=== PATIENT | male | born 1940 | race American Indian/Alaskan Native ===

== ENCOUNTER 2017-12-07 14:44 | Emergency (ER) | payer OTHER, MEDICARE ==
[~2017-12-07] VITALS: Ht 172.7 cm; Wt 82.5 kg
--- OUTSIDE RECORDS SUMMARY | ~2017-12-07 | XMS | Clinical Summary ---
Demographics + + + | Address | [address] | | | [place] [address] | + + + | Home Phone | | + + + | Preferred Language | Unknown | + + + | Marital Status | | + + + | Yazidi Affiliation | 1041 | + + + | Race | Unknown | + + + | Ethnic Group | Unknown | + + + Author + + + | Author | [facility] | | | and [place] | + + + | Organization | [facility] | | | and [place] | + + + | Address | Unknown | + + + | Phone | Unavailable | + + + Support + + + + + | Name | Relationship | Address | Phone | + + + + + | Alycia Diego | ECON | [address] | | | | | [place] [address] | | + + + + + | Devika Diego | ECON | [address] | | | | | [address], [place] | | | | | [address] | | + + + + + Care Team Providers + +------+ + | Care Button And Buckle Maker Name | Role | Phone | + +------+ + | Pcp, Prov Inactive | PP | Unavailable | + +------+ + Allergies + + + +--------+ + | Active Allergy | Reactions | Severity | Noted | Comments | | | | | Date | | + + + +--------+ + | Penicillins | | | | hives | + + + +--------+ + Current Medications + + +---------+---------+------+------+-------+ | Prescription | Sig. | Disp. | Refills | Star | End | Statu | | | | | | t | Date | s | | | | | | Date | | | + + +---------+---------+------+------+-------+ | | Take 1 tablet by | | | | | Activ | | HYDROcodone-acetamin | mouth every 6 hours | | | | | e | | ophen (NORCO) 5-325 | as needed. | | | | | | | mg per tablet | | | | | | | + + +---------+---------+------+------+-------+ | metoprolol | Take 50 mg by mouth | | | | | Activ | | tartrate (LOPRESSOR) | 2 times daily. | | | | | e | | 50 mg tablet | | | | | | | + + +---------+---------+------+------+-------+ | gabapentin | 1 tab PO nightly x 1 | 180 | 3 | 08/0 | | Activ | | (NEURONTIN) 100 mg | week, then increase | capsule | | 7/20 | | e | | capsule | to 2 tabs PO | | | 14 | | | | | nightly x 1 week, | | | | | | | | then increase to 3 | | | | | | | | tabs PO nightly. If | | | | | | | | tolerated; okay to | | | | | | | | start taking 1 tab | | | | | | | | in AM, 3 tabs in PM | | | | | | | | x 1 week, then | | | | | | | | increase to 2 tabs | | | | | | | | in AM, 3 tabs in PM | | | | | | | | x 1 week, then | | | | | | | | increase to 3 tabs | | | | | | | | in AM, 3 tabs in PM | | | | | | | | thereafter. | | | | | | + + +---------+---------+------+------+-------+ | latanoprost | Place 1 drop into | | | | | Activ | | (XALATAN) 0.005% | both eyes nightly. | | | | | e | | ophthalmic solution | | | | | | | + + +---------+---------+------+------+-------+ Active Problems + + + | Problem | Noted Date | + + + | Hemorrhage of rectum and anus | 02/05/2015 | + + + | Iron deficiency anemia, unspecified | 02/05/2015 | + + + + + | Overview: ICD-10 Record update | + + + + + | Lumbar radiculopathy | 05/08/2014 | + + + | Spinal stenosis of lumbar region - worse at L3/L4 | 04/09/2014 | + + + | DDD (degenerative disc disease), lumbar | 04/09/2014 | + + + | Low back pain | 03/19/2014 | + + + | Right leg pain | 03/19/2014 | + + + | VITAMIN D DEFICIENCY | | + + + | HYPERCHOLESTEROLEMIA | | + + + | DIABETES MELLITUS, TYPE II | | + + + | HYPERTENSION, BENIGN ESSENTIAL | | + + + Family History + + +------+ + | Medical History | Relation | Name | Comments | + + +------+ + | High blood pressure | Father | | | + + +------+ + + +------+--------+ + | Relation | Name | Status | Comments | + +------+--------+ + | Father | | | | + +------+--------+ + Social History + +-------+ +--------+------+ | Tobacco Use | Types | Packs/Day | Years | Date | | | | | Used | | + +-------+ +--------+------+ | Never Smoker | | | | | + +-------+ +--------+------+ + +---+---+---+ | Smokeless Tobacco: | | | | | Never Used | | | | + +---+---+---+ + + + | Sex Assigned at | Date Recorded | | | | + + + | Not on file | | + + + Last Filed Vital Signs + + + + | Vital Sign | Reading | Time Taken | + + + + | Blood Pressure | 122/68 | 02/08/2015 1335 PDT | + + + + | Pulse | 66 | 02/08/20151334 PDT | + + + + | Temperature | 36.2 C (97.2 F) | 02/08/20151131 PDT | + + + + | Respiratory Rate | 17 | 02/08/20151334 PDT | + + + + | Oxygen Saturation | 98% | 02/08/20151334 PDT | + + + + | Inhaled Oxygen | - | - | | Concentration | | | + + + + | Weight | 72.6 kg (160 lb) | 02/08/20151131 PDT | + + + + | Height | 172.7 cm (5' 8") | 02/08/20151131 PDT | + + + + | Body Mass Index | 24.33 | 02/08/20151131 PDT | + + + + Plan of Treatment + + + + + | Health Maintenance | Due Date | Last Done | Comments | + + + + + | Diabetic Eye Exam | | | | | (Bi-Annually) | 0 | | | + + + + + | Diabetic Foot Exam | | | | | | 0 | | | + + + + + | Hemoglobin A1c Q3 | | | | | Months | 0 | | | + + + + + | Vaccine: | | | | | Dtap/Tdap/Td (1 - | 1 | | | | Tdap) | | | | + + + + + | Vaccine: Zoster (#1) | | | | | | 2 | | | + + + + + | Vaccine: | | | | | Pneumococcal 65+ | 7 | | | | Low/Medium Risk (1 | | | | | of 2 - PCV13) | | | | + + + + + | Microalbumin | | | | | Screening | 5 | | | + + + + + | Vaccine: Influenza | | | | | (#1) | 7 | | | + + + + + Results Not on filefrom Last 3 Months Insurance + +--------+ +--------+ +---------+ | Payer | Benefi | Subscriber | Type | Phone | Address | | | t Plan | ID | | | | | | / | | | | | | | Group | | | | | + +--------+ +--------+ +---------+ | MEDICARE | MEDICA | xxxxxxxxxx | Medica | [phone] | | | RE | | re | [phone] | | | | PART A | | | | | | | AND B | | | | | + +--------+ +--------+ +---------+ | HEALTH | IHS | xxxxxxxxx | Indemn | | | | SERVICE | YELLOW | | ity | | | | | [place]WK | | | | | + +--------+ +--------+ +---------+ + +--------+ +--------+ + + | Guarantor Name | Accoun | Relation to | Date | Phone | Billing Address | | | t Type | Patient | of | | | | | | | | | | + +--------+ +--------+ + + | JAVIER DIEGO | Person | Self [birth year] | Work: | [address], | | | al/Job | | 1941 | [phone] [place] [address] | | | [address] | | | [address]: | | | | | | | | | | | | | | [phone] | | | | | | | [phone] | | + +--------+ +--------+ + +
--- OUTSIDE RECORDS SUMMARY | ~2017-12-07 | XMS | Clinical Summary ---
Demographics + + + | Address | [address] | | | [place] [address] | + + + | Home Phone | | + + + | Preferred Language | Unknown | + + + | Marital Status | | + + + | Mandaeism Affiliation | 1041 | + + + | Race | Unknown | + + + | Ethnic Group | Unknown | + + + Author + + + | Author | [facility] | | | and [place] | + + + | Organization | [facility] | | | and [...] | | | | | [place] [address] | | + + + + + | Devika Diego | ECON | [address] | | | | | [address], [place] | | | | | [address] | | + + + + + Care Team Providers + +------+ + | Care Supervisor Shuttle Fitting Name | Role | Phone | + [...] | | al/Job | | 1941 | [phone] | [place] [phone] | | | [address] | | | [address]: | | | | | | | | | | | | | | [phone] | | | | | | | [address] | | + +--------+ +--------+ + +
[2017-12-07] MEDS ORDERED: ASPIR 8181 MG PO (16:12)
== END 2017-12-07 17:16 | disposition home or self-care (01) ==
LOC: ED 14:44
DX: S13.9XXA Sprain of joints and ligaments of unspecified parts of neck, initial encounter (principal); S30.0XXA Contusion of lower back and pelvis, initial encounter; I10 Essential (primary) hypertension; Z88.0 Allergy status to penicillin; Z79.82 Long term (current) use of aspirin; W11.XXXA Fall on and from ladder, initial encounter
CPT/HCPCS: 99282